=== PATIENT | female | born 1980 | race Caucasian/White ===

== ENCOUNTER → 2020-02-12 07:41 | Outpatient (CLI) | payer OTHER, SELFPAY ==
--- NOTE | ~2020-02-12 | CT_ITS ---
EXAMINATION: CT sinus wo con DATE: 02/12/2020 07:56 INDICATION: Chronic sinusitis TECHNIQUE: Computed tomography (CT) of the paranasal sinuses was performed without intravenous contra st. The dose-length product (DLP) was 285.32 mGy-cm. Iterative reconstruction was used. COMPARISON: None FINDINGS: The sphenoid sinuses are hypoplastic. There is otherwise normal development and pneumatizat ion of the paranasal sinuses. There is near complete opacification of the right frontal sinus. Minima l opacification is present in the frontal maxillary sinus. There is moderate opacification of the eth moidal air cells. There is minimal mucosal thickening of the sphenoid sinuses. The maxillary sinuses are nearly completely opacified. The bilateral ostiomeatal complexes are occluded. Visualized soft ti ssues are unremarkable. There is mild rightward deviation of the nasal septum. There is minimal opaci fication of the bilateral mastoid air cells. IMPRESSION: 1. Pansinusitis. Reviewed, dictated and finalized at location B. IMPRESSION: 1. Pansinusitis.
== END ==
PROVIDERS: Visit Provider Otolaryngology
DX: J32.4 Chronic pansinusitis (principal)
CPT/HCPCS: 70486

== ENCOUNTER 2023-06-15 15:30 | Observation (INO) | payer OTHER, SELFPAY ==
[2023-06-15] VITALS (34 sets, daily range): BP systolic 130–161; BP diastolic 71–113; PULSE 56–75; RESP 15–30; TEMP 36.6–36.9; O2SAT 85–100
--- NOTE | ~2023-06-15 | NM_ITS ---
EXAMINATION: NM kate stress w perfusion DATE: 06/16/2023 11:25 INDICATION: Chest discomfort TECHNIQUE: Rest images were obtained following intravenous administration of 10.3 mCi Tc99m tetrofosm in (Myoview). The patient was infused intravenously with Lexiscan (Regadenoson). Then, 32 mCi Tc99m t etrofosmin (Myoview) was administered intravenously, and stress images were obtained. Data was recons tructed into short axis and horizontal and vertical long axis SPECT images. Gated SPECT images were a lso obtained. COMPARISON: None. FINDINGS: There is no definite reversible or fixed perfusion abnormality to suggest ischemia or infar ction. There is normal left ventricular chamber size, wall motion and ejection fraction. Left ventr icular ejection fraction measures 62%. IMPRESSION: 1. Normal myocardial perfusion at rest and during stress. 2. Left ventricular ejection fraction measuring 62%. Reviewed, dictated and finalized at location A.
--- NOTE | ~2023-06-15 | XR_ITS ---
EXAMINATION: XR chest 2V 06/15/2023 16:05 INDICATION: Chest pain PROCEDURE: 2 view chest COMPARISON: No prior studies for comparison. FINDINGS: The lungs are clear. The cardiomediastinal silhouette is within normal limits. There are no pleural effusions. There is no pneumothorax suspected. IMPRESSION: 1: NO ACUTE CARDIOPULMONARY DISEASE. Reviewed, dictated and finalized at location A.
--- NOTE | ~2023-06-15 | XR_ITS ---
LUMBAR SPINE INDICATION: Low back pain TECHNIQUE: 3 views lumbar spine COMPARISON: None FINDINGS: No fracture, subluxation or dislocation. No evidence for spondylolysis or spondylolisthesi s. Vertebral bodies and disk spaces are preserved. IMPRESSION: 1: No acute abnormality of the lumbar spine identified. Reviewed, dictated and finalized at location A.
--- NOTE | ~2023-06-15 | CT_ITS ---
EXAMINATION: CT BRAIN W/O DATE: 06/15/2023 18:55 INDICATION: Headache. Blurred vision. TECHNIQUE: Computed tomography (CT) of the head was performed without intravenous contrast. The dose- length product was 605.33 mGy-cm. Automated exposure control and iterative reconstruction technique w ere employed. COMPARISON: No prior studies for comparison. FINDINGS: Normal brain parenchymal volume for age. Normal hernandez-white differentiation. No acute intrac ranial hemorrhage, infarction, mass or mass effect. No ventriculomegaly or midline shift. Midline sagittal images demonstrate a normal corpus callosum, c raniovertebral junction and sella turcica. Basilar cisterns are patent. Paranasal sinuses and mastoids are pneumatized. No depressed skull fractures. IMPRESSION: 1. No acute intracranial abnormality. Reviewed, dictated and finalized at location A.
--- NOTE | ~2023-06-15 | XR_ITS ---
XR_CERV2-3V_CR 06/15/2023 19:05 Indication: Neck pain Procedure: 4 view cervical spine Comparison: No prior studies for comparison. Findings: Vertebral body heights are maintained. No prevertebral soft tissue swelling. No significant disc narrowing. There is straightening of cervical lordosis. Odontoid process is unremarkable. No pr evertebral soft tissue abnormality. Impression: 1: No acute abnormality of the cervical spine. Reviewed, dictated and finalized at location A. Impression: 1: No acute abnormality of the cervical spine.
--- NOTE | 2023-06-15 15:39 | ECG_ITS ---
Measurements Intervals [place] Rate: 69 P: 32 RI: 139 QRS: 6 QRSD: 86 T: -20 QT: 385 QTc: 414 Interpretive Statements SINUS RHYTHM LEFT VENTRICULAR HYPERTROPHY WITH ST-T CHANGE CONSIDER INFERIOR INFARCT, AGE INDETERMINATE BORDERLINE ST-T WAVE ABNORMALITY- ANTEROLATERAL LEADS BASELINE ARTIFACT- I, II, V2, V5-V6 ABNORMAL ECG NO PREVIOUS ECG AVAILABLE FOR COMPARISON Electronically Signed On 06-15-2023 16:12:53 CDT by Thong Mariscal D.O.
[2023-06-15 15:57] LABS: Basophils Percent Auto 0.3 % (0.2-1.2); Hematocrit 39.5 % (37.0-47.0); Immature Granulocyte Absolute 0.11 K/mm3 (0.00-0.031); Immature Granulocyte Percent A 1.1 % (0-0.5); Lymphocytes Absolute Auto 1.47 K/mm3 (0.9-3.2); Lymphocytes Percent Auto 14.9 % (18.3-44.2); Mean Corpuscular HGB Conc 30.4 g/dl (32-36); Mean Corpuscular Hemoglobin 25.5 pg (26-34); Mean Corpuscular Volume 83.9 fl (80-100); Mean Platelet Volume 10.1 fl (7.4-10.4); Monocytes Absolute Auto 0.1 K/mm3 (0.1-0.6); Monocytes Percent Auto 1.4 % (2.6-8.5); Neutrophils Absolute Auto 8.1 K/mm3 (1.3-6.7); Neutrophils Percent Auto 82.3 % (45.5-73.1); Platelet Count Result 417 k/mm3 (150-375); Red Blood Count 4.71 M/mm3 (4.2-5.4); White Blood Count 9.9 K/mm3 (4.5-10.0)
[2023-06-15 16:07] LABS: Alanine Aminotransferase 35 U/L (6-35); Albumin Level 4.5 g/dL (3.5-5.1); Alkaline Phosphatase 72 U/L (38-126); Anion Gap 17 mmol/L (8-16); Aspartate Amino Transferase 35 U/L (14-36); Bilirubin,Total 0.6 mg/dL (0.2-1.3); Blood Urea Nitrogen 15 mg/dL (7-17); Calcium 9.1 mg/dL (8.4-10.2); Carbon Dioxide 20 mmol/L (22-30); Chloride 102 mmol/L (98-107); Estimated CRCL calculation 135 ml/min; Estimated Glomerular Filt Rate > 60; Glucose 268 mg/dL (65-110); Lipase 46 U/L (23-300); Potassium 3.9 mmol/L (3.4-5.0); Sodium 139 mmol/L (137-145)
[2023-06-15 16:09] LABS: INR 0.9; Partial Thromboplastin Time 27.7 SECONDS (22.3-36.8); Prothrombin Time 12.7 Seconds (11.1-14.7)
[2023-06-15 16:18] LABS: Troponin I < 0.012 ng/mL (0.000-0.034)
--- NOTE | 2023-06-15 18:34 | ED.GENADULT ---
HPI - General Adult General Chief complaint: Unspecified <ELOINA Martinez Last Filed: 06/15/23 20:40> Stated complaint: Feels like having cardiac event, BP high, blurred <ELOINA Martinez Last Filed: 06/15/23 20:40> Time Seen by Provider: 06/15/23 18:25 <ELOINA Martinez Last Filed: 06/15/23 20:40> Source: patient <ELOINA Martinez Last Filed: 06/15/23 20:40> Mode of arrival: ambulatory <ELOINA Martinez Last Filed: 06/15/23 20:40> Limitations: no limitations <ELOINA Martinez Last Filed: 06/15/23 20:40> History of Present Illness HPI narrative: This is a 43-year-old female that presents to the emergency department with multiple complaints. Reports she was started on prednisone yesterday and is wondering if it is a side effect of this. Reports this afternoon she started to feel sweaty, lightheaded, and have chest pressure. She was concerned there was something going on with her heart which prompted her to be seen. Also reports she has had some pain in her neck and low back. Reports some shortness of breath. Reports a headache and blurry vision. Denies fever, cough, lower extremity edema, abdominal pain, vomiting. <ELOINA Martinez Last Filed: 06/15/23 20:40> Related Data Home medications: Home Medications Medication Instructions Recorded Confirmed No Home Medications 06/16/23 06/16/23 <ELOINA Martinez Last Filed: 06/15/23 20:40> Allergies/adverse reactions: Allergies Allergy/AdvReac Type Severity Reaction Status Date / Time No Known Allergies Allergy Unverified 06/28/16 12:53 <ELOINA Martinez Last Filed: 06/15/23 20:40> Review of Systems Review of Systems: CONSTITUTIONAL: Denies fever EYES: Reports visual changes CARDIOVASCULAR: Reports chest pain. Denies palpitations, or edema. RESPIRATORY: Reports dyspnea. Denies cough GASTROINTESTINAL: Denies abdominal pain, nausea, vomiting GENITOURINARY: Denies dysuria SKIN: Reports rash and itching. MUSCULOSKELETAL: Reports back pain, joint pain, and myalgia. NEUROLOGIC: Reports headache. Denies numbness, or weakness. <Anette Price PA-C - Last Filed: 06/15/23 20:40> All systems reviewed & are unremarkable except as noted in HPI and below <Anette Price PA-C - Last Filed: 06/15/23 20:40> REPLACED BY [facility] Past Medical History Medical History: Medical History (Updated 06/16/23 @ 02:40 by Aryan Lopez MD) History of gestational diabetes <Anette Price PA-C - Last Filed: 06/15/23 20:40> Family History Family History: Family History (Updated 06/16/23 @ 06:07 by Roxanne Mckoy RN) Mother Melanoma Diabetes mellitus Grandparent Melanoma Father Diabetes mellitus <Anette Price PA-C - Last Filed: 06/15/23 20:40> Social History Social History: Social History (Updated 06/15/23 @ 18:41 by Anette Price PA-C) Smoking status: Never smoker Second hand tobacco smoke exposure: No Alcohol intake: never Substance use: never Lack of Transportation: No Lack of Food: Never True Current Housing: I Have Housing Concerned About Future Housing: No Difficulty Paying Gas/Electric Bills: No Difficulty Paying for Meds: No Currently Unemployed: No Education: Decline to Answer Difficulty w/ Childcare or Family Care: No Spiritual care concerns: No <Anette Price PA-C - Last Filed: 06/15/23 20:40> Exam Narrative: GENERAL: Well-appearing, well-nourished, tearful HEAD: Normocephalic, atraumatic. EYES: PERRLA and EOMI. ENT: Nares clear, no rhinorrhea or epistaxis. Mucous membranes moist. Oropharynx without tonsillar hypertrophy exudate or other lesions. NECK: Supple. No adenopathy or masses. No JVD CHEST: Clear to auscultation. No respiratory distress. No wheezes rales or rhonchi HEART: Regular rate and rhythm. No murmur heard. Normal peripheral pulses. EXTREMITIES: Normal range
[2023-06-15] MEDS: SODIUM CHLORIDE 0.9% IV 500 ML 999 ML IV CONT (19:24)
--- NOTE | 2023-06-15 19:25 | PC.NURSE ---
pt cc/c hives from prednisone. pt currently doesn't not have hives but is a little red. pt is axo4, abc are wnl nad. airway is patent, spontaneous and self maintained. pt is on the teletypesetter monitor and is in nsr wo ectopy noted. ivf are infusing and meds given and labs sent
[2023-06-15 19:27] LABS: Troponin I < 0.012 ng/mL (0.000-0.034)
[2023-06-15 20:11] LABS: Appearance Urine Clear (Clear); Bilirubin Urine Negative (Negative); Blood Urine Negative (Negative); Color Urine Yellow (Yellow); Glucose Urine UA Negative (Negative); Ketones Urine Negative (Negative); Leukocyte Esterase Ur Negative LEU/UL (Negative); Nitrate Urine Negative (Negative); Protein Urine Negative (Negative); Specific Grav Ur 1.018 (1.001-1.035); Urobilinogen Urine 0.2 mg/dL (<2.0); pH Urine 6.5 (5.0-9.0)
[2023-06-15 20:17] LABS: Add Urine Microscopic? NO
--- NOTE | 2023-06-15 20:33 | PM.IMHP ---
H&P: HPI History of Present Illness Date/Time: 06/15/23 20:33 Chief Complaint: Chest discomfort Narrative: This is a 43-year-old female with past medical history significant for obesity, patient presented to the emergency room after she had an episode of chest discomfort with palpitations, hypertension, had been started on a prednisone taper when she went to the prior day to urgent care due to a day semi needed maculopapular rash pruriginous present for 2 weeks. Patient was found to have a high blood pressure at urgent care the day before as well and was instructed to monitor her blood pressure while on the prednisone. Patient denies any nausea, vomiting, leg swelling, PND or orthopnea. Preliminary workup was significant for blood glucose in the 200s a hemoglobin A1c of 7 and initial blood pressure upon presentation to the emergency room was 147/86. Patient is been placed in observation for further evaluation management and treatment. EXAMINATION: XR chest 2V 06/15/2023 16:05 INDICATION: Chest pain PROCEDURE:? 2 view chest COMPARISON: No prior studies for comparison. FINDINGS: The lungs are clear.? The cardiomediastinal silhouette is within normal limits.? There are no pleural effusions.? There is no pneumothorax suspected.? IMPRESSION: 1:? NO ACUTE CARDIOPULMONARY DISEASE. EXAMINATION: CT BRAIN W/O DATE: 06/15/2023 18:55 INDICATION: Headache. Blurred vision. TECHNIQUE: Computed tomography (CT) of the head was performed without intravenous contrast. The dose-length product was 605.33 mGy-cm. Automated exposure control and iterative reconstruction technique were employed. COMPARISON: No prior studies for comparison. FINDINGS: Normal brain parenchymal volume for age. Normal hernandez-white differentiation. No acute intracranial hemorrhage, infarction, mass or mass effect. No ventriculomegaly or midline shift. Midline sagittal images demonstrate a normal corpus callosum, craniovertebral junction and sella turcica. Basilar cisterns are patent. Paranasal sinuses and mastoids are pneumatized. No depressed skull fractures. IMPRESSION: 1. No acute intracranial abnormality. XR_[id number]_CR 06/15/2023 19:05 Indication: Neck pain Procedure: 4 view cervical spine Comparison: No prior studies for comparison. Findings: Vertebral body heights are maintained. No prevertebral soft tissue swelling. No significant disc narrowing. There is straightening of cervical lordosis. Odontoid process is unremarkable. No prevertebral soft tissue abnormality. Impression: 1: No acute abnormality of the cervical spine. LUMBAR SPINE INDICATION: Low back pain TECHNIQUE: 3 views lumbar spine COMPARISON: None FINDINGS: No fracture, subluxation or dislocation.? No evidence for spondylolysis or spondylolisthesis.? Vertebral bodies and disk spaces are preserved. IMPRESSION: 1: No acute abnormality of the lumbar spine identified. Rate 69 TN 139 QRSd 86 QT 385 QTc 414 --[place]-- P 32 QRS 6 T -20 SINUS RHYTHM LEFT VENTRICULAR HYPERTROPHY WITH ST-T CHANGE CONSIDER INFERIOR INFARCT, AGE INDETERMINATE BORDERLINE ST-T WAVE ABNORMALITY- ANTEROLATERAL LEADS BASELINE ARTIFACT- I, II, V2, V5-V6 ABNORMAL ECG NO PREVIOUS ECG AVAILABLE FOR COMPARISON Electronically Signed On 06-15-2023 16:12:53 CDT by Thong Mariscal D.O. Review of Systems Review of Systems: Chest discomfort Constitutional: Constitutional: Denies chills, Denies fatigue, Denies fever(s), Denies frequent falls, Reports headache(s), Denies malaise, Denies night sweats, Denies poor appetite and Denies weight loss Eyes: Eyes: Denies change in vision ENT: Denies dysphagia, Denies vertigo, Reports dizziness, Denies nasal congestion, Denies nasal discharge, Denies nasal obstruction and Denies odynophagia Cardiovascular: Cardiovascular: Reports chest pain at rest, Denies radiating jaw, neck or arm pain, Denies palpitations, Denies dyspnea and Denies orthopnea Respiratory: Respiratory:
--- NOTE | 2023-06-15 21:34 | PC.NURSE ---
ivf are complete and pt was ambulatory to restroom. pt denies pain at this time
[2023-06-15 22:52] LABS: Troponin I < 0.012 ng/mL (0.000-0.034)
[2023-06-16] VITALS (36 sets, daily range): BP systolic 142–155; BP diastolic 74–108; PULSE 49–93; RESP 11–21; TEMP 36.5–36.9; O2SAT 94–99; BMI 38.1
--- NOTE | 2023-06-16 00:51 | EST_ITS ---
Patient Info Name: Joann Correa Age: 43 years : 1980 Gender: Female Ht: 68 in Wt: 251 lbs BSA: 2.39 m2 HR: 59 bpm BP: 126 / 91 mmHg Heart Rhythm: Sinus Rhythm Exam Date: 06/16/2023 10:26 AM Exam Location: [facility] Stress Patient Status: Outpatient Admit Date: 06/15/2023 Staff Ordering Physician: Aryan Lopez MD Attending Provider: Aryan Lopez MD Exercise Technologist: Gracy Brizuela CT Nurse: Unique Doe APN Exam Type: CA stress kate w NM Study Info Indications R07.89 - Other chest pain A regadenoson stress test was performed. Summary 1. Sinus bradycardia with nonspecific T-wave abnormality. 2. No diagnostic changes noted following Lexiscan injection. 3. Clinically and electrocardiographically unremarkable Lexiscan stress test. 4. Myocardial perfusion imaging exam to be reported by Radiology. Protocol: Lexiscan Stress ECG Details Stage: REST Duration (min): 1 min : 32 sec HR (bpm): 59 SBP (mmHg): 126 DBP (mmHg): 91 Stage: REST Duration (min): 9 min : 3 sec HR (bpm): 55 SBP (mmHg): 126 DBP (mmHg): 91 Stage: STAGE 1 Duration (min): 1 min : 0 sec HR (bpm): 97 SBP (mmHg): 145 DBP (mmHg): 96 Stage: RECOVERY Duration (min): 1 min : 0 sec HR (bpm): 81 SBP (mmHg): 145 DBP (mmHg): 96 Stage: RECOVERY Duration (min): 2 min : 0 sec HR (bpm): 68 SBP (mmHg): 145 DBP (mmHg): 96 Stage: RECOVERY Duration (min): 3 min : 0 sec HR (bpm): 67 SBP (mmHg): 145 DBP (mmHg): 96 Stage: RECOVERY Duration (min): 3 min : 16 sec HR (bpm): 67 SBP (mmHg): 144 DBP (mmHg): 91 Rest HR: 55 bpm Peak HR: 99 bpm Rest Sys BP: 126 mmHg Peak Sys BP: 145 mmHg Max Pred HR: 176 bpm % Max Pred HR: 56 % Target HR: 150 bpm Max RPP: 14,355 bpm*mmHg Termination Reason: Completed protocol Cardiac Symptoms: Shortness of breath Total Time: 1 min : 0 sec Rest Sage BP: 91 mmHg Peak Sage BP: 96 mmHg Total Dose: 0.4 mg Resting ECG Sinus bradycardia with nonspecific T-wave abnormality. Stress ECG No diagnostic changes noted following Lexiscan injection. Report Signatures
--- NOTE | 2023-06-16 01:29 | PC.NURSE ---
pt is resting with closed eyes. abc are wnl nad. airway is patent,spontaneous and self maintained. pt denies pain. pt placed on hospital bed. all comfort measures have been addressed
--- NOTE | 2023-06-16 04:10 | PC.NURSE ---
pt is resting with closed eyes. abc are wnl nad. airway is patent,spontaneous and self maintained. pt appears to be pain free. vss and will continue to monitor.
--- NOTE | 2023-06-16 05:46 | ADMGEN ---
This patient, Joann Correa, was admitted to Intensive Care Unit-7. Patient/family oriented to hospital policies and general routines including ID bracelet, bed and alarms, visiting hours, pain management, procedures, bathroom and other care routines, personal items, smoking policy, room service/diet, and visiting hours. Information on how to activate the Rapid Response Team has been discussed. Patient/Family are encouraged to report perceived risks to care and to ask questions if they do not understand what they are told or what they should do.
[2023-06-16] MEDS: ACETAMINOPHEN 500 MG TABLET 1000 MG PO (06:15)
--- NOTE | 2023-06-16 14:42 | PM.DS ---
DS: Admitting Diagnosis Discharge Date 06/16/23 Admitting Diagnosis cp DS: Discharge Diagnosis Discharge Diagnosis (1) Chest pain: Qualifiers: Chest pain type: unspecified Qualified Code(s): R07.9 - Chest pain, unspecified Code(s): R07.9 - Chest pain, unspecified Status: Acute Assessment and Plan: Place in observation Stress test in a.m. (2) Uncontrolled hypertension: Code(s): I10 - Essential (primary) hypertension Status: Acute Assessment and Plan: Will start lisinopril (3) Rash: Code(s): R21 - Rash and other nonspecific skin eruption Status: Acute Assessment and Plan: Resolved (4) T2DM (type 2 diabetes mellitus): Code(s): E11.9 - Type 2 diabetes mellitus without complications Status: Acute Assessment and Plan: Follow-up in outpatient setting DS: Summary Hospital Course Hospital Course: admitted for cp, ta negative, fu pcp on dc Time Spent with Patient Time attestation: Total time spent providing and/or coordinating discharge services: Exam Narrative: lying in stretcher Const: General: comfortable, no acute distress, well developed, alert, awake, average body habitus and overweight Nutritional Appearance: average body habitus and overweight Orientation/consciousness: patient oriented x3 HENMT: Head: normal to inspection, normocephalic and atraumatic Ears: hearing grossly normal bilaterally Face/Nose/Sinus: normal facial exam Face and sinus: normal facial exam Eyes: General: appearance normal, both eyes and all related structures Pupils: Equal, round and reactive pupils present EOM: EOMs intact bilaterally Neck: Neck: full ROM, no lymphadenopathy and no JVD Thyroid: thyroid normal Lymphatic: no lymphadenopathy noted Resp: Effort & Inspection: normal respiratory effort and able to speak in complete sentences Auscultation: clear to auscultation bilaterally Cardio: Jugular venous distension: no JVD Rate: regular rate Rhythm: regular rhythm Heart sounds: S1 normal heart sound present and S2 normal heart sound present : General: Yes deferred Skin: Rashes: no rashes Wounds: no wounds Neuro: General: patient oriented x3, CN's II-XI intact bilaterally and Unable to assess gait Cranial nerves: Yes CN's II-XII intact bilaterally and Yes Equal, round and reactive pupils present Cognition (Neuro): normal cognition Speech: normal speech Gait exam (Neuro): Normal gait present and Unable to assess gait Motor exam (neuro): 5/5 motor strength present throughout Sensory Exam: No Sensory deficit (Neuro) Extrem: General: normal to inspection, full ROM, no joint enlargement and no pedal edema DS: Data Data Completed and Pending Labs on day of discharge: Labs from last 24 hours 06/15/23 06/15/23 06/15/23 22:12 19:21 18:39 WBC RBC Hgb Hct MCV MCH MCHC RDW Plt Count MPV Immature Gran % (Auto) Neut % (Auto) Lymph % (Auto) [place] % (Auto) Eos % (Auto) Baso % (Auto) Lymph # (Auto) [place] # (Auto) Eos # (Auto) Baso # (Auto) Abs Immat Gran (auto) Absolute Neuts (auto) Absolute Nucleated RBC Nucleated RBC % PT INR APTT Sodium Potassium Chloride Carbon Dioxide Anion Gap BUN Creatinine Estim Creat Clear Calc Estimated GFR Glucose Hemoglobin A1c 7.0 H Calcium Total Bilirubin AST ALT Alkaline Phosphatase Troponin I < 0.012 < 0.012 Total Protein Albumin Lipase Urine Color Yellow Urine Appearance Clear Urine pH 6.5 Ur Specific [place] 1.018 Urine Protein Negative Urine Glucose (UA) Negative Urine Ketones Negative Ur Blood (Man) Negative Urine Nitrate Negative Urine Bilirubin Negative Urine Urobilinogen 0.2 Leukocyte Esterase Rfl Negative 06/15/23 15:50 WBC 9.9 RBC 4.71 Hgb 12.0 Hct 39.5 MCV 83.9
== END 2023-06-16 15:10 | disposition home or self-care (01) ==
LOC: ANHED 20:39 → ANHICU 06-16 09:25 → ANHIMU 06-19 11:53
PROVIDERS: Emergency Medicine; Admitting Provider Internal Medicine; Emergency Provider Physician Assistant; Visit Provider Chiropractor
DX: R07.9 Chest pain, unspecified (principal); I10 Essential (primary) hypertension; R21 Rash and other nonspecific skin eruption; E11.9 Type 2 diabetes mellitus without complications; R00.2 Palpitations; M54.50 Low back pain, unspecified; R42 Dizziness and giddiness; M54.2 Cervicalgia; R06.00 Dyspnea, unspecified; R51.9 Headache, unspecified; H53.8 Other visual disturbances; R60.0 Localized edema; R10.9 Unspecified abdominal pain; R94.31 Abnormal electrocardiogram [ECG] [EKG]; E66.9 Obesity, unspecified; Z68.38 Body mass index [BMI] 38.0-38.9, adult; Z83.3 Family history of diabetes mellitus
CPT/HCPCS: 36415; 70450; 71046; 72040; 72100; 78452; 80053; 81003; 83036; 83690; 84484; 85025; 85610; 85730; 93005; 93017; 99285; A9270; A9502; G0378; J2785; J7040